=== PATIENT | male | born 1995 ===

== ENCOUNTER 2017-05-05 00:34 | Emergency (ER) | payer SELFPAY ==
[2017-05-05 01:30] VITALS: BP 129/84; PULSE 86; RESP 20; TEMP 98.4; O2SAT 100
[2017-05-05 01:49] LABS: URINE BILIRUBIN NEGATIVE (NEGATIVE); URINE BLOOD NEGATIVE (NEGATIVE); URINE CLARITY Clear (Clear); URINE COLOR Yellow (YELLOW); URINE GLUCOSE (UA) NORMAL (Normal); URINE LEUKOCYTE ESTERASE NEG Leu/uL (Negative); URINE NITRATE NEGATIVE (NEGATIVE); URINE PROTEIN 1+ mg/dL (NEGATIVE); URINE UROBILINOGEN NORMAL mg/dL (0.2-1.0)
[2017-05-05 02:14] LABS: BARBITURATES, UR NEGATIVE (NEGATIVE)
[2017-05-05 02:15] LABS: BENZODIAZEPINES, UR NEGATIVE (NEGATIVE); OPIATES, UR NEGATIVE (NEGATIVE)
[2017-05-05 02:17] LABS: PHENCYCLIDINE, UR NEGATIVE (NEGATIVE)
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
== END 2017-05-05 02:47 | disposition home or self-care (01) ==
LOC: C.ER 00:34
DX: F19.10 Other psychoactive substance abuse, uncomplicated (principal)
CPT/HCPCS: 81001; 99283; G0480